=== PATIENT | female | born 1970 ===

== ENCOUNTER 2018-08-05 09:03 | Outpatient (CLI) | payer OTHER | END 2018-08-05 09:04 | disposition home or self-care (01) | LOC: C.EKG 09:03 ==

== ENCOUNTER 2018-08-05 09:08 | Outpatient (CLI) | payer OTHER | END 2018-08-05 09:09 | disposition home or self-care (01) | LOC: C.CARD 09:09 | DX: R07.9 Chest pain, unspecified (principal) ==

== ENCOUNTER 2018-09-15 09:43 | Outpatient (CLI) | payer OTHER | END 2018-09-15 09:44 | disposition home or self-care (01) | LOC: C.LAB 09:43 | DX: K76.0 Fatty (change of) liver, not elsewhere classified (principal) ==